=== PATIENT | female | born 1980 | race Caucasian/White ===

== ENCOUNTER 2016-10-13 17:24 | Emergency (ER) | payer MEDICAID ==
[~2016-10-13] VITALS: Ht 170.2 cm; Wt 74.0 kg
[2016-10-13 17:51] VITALS: Ht 170.2 cm; Wt 74.0 kg
[2016-10-13] MEDS ORDERED: ACETAMINOPHEN 325 MG TAB PO STA (19:31)
[2016-10-13] MEDS ORDERED: ONDANSETRON (ODT) 4 MG TAB ODT STA (19:31)
[2016-10-13 20:45] LABS: ADD UMIC YES; URINE BILIRUBIN (Dip) NEGATIVE (NEGATIVE); URINE BLOOD (Dip) TRACE (NEGATIVE); URINE COLOR LT. YELLOW (YELLOW); URINE GLUCOSE (Dip) NEGATIVE (NEGATIVE); URINE KETONES (Dip) NEGATIVE (NEGATIVE); URINE LEUKOCYTE ESTERASE (Dip) 1+ (NEGATIVE); URINE NITRITE (Dip) NEGATIVE (NEGATIVE); URINE TOTAL PROTEIN (Dip) NEGATIVE (NEGATIVE); URINE UROBILINOGEN (Dip) 0.2 E.U./dL (0.1-1.0)
[2016-10-13 20:55] LABS: SQUAMOUS EPITHELIAL CELL,UR FEW; URINE RBCS 0-2 /HPF (0)
[2016-10-13 20:56] LABS: BACTERIA,URINE FEW
[2016-10-13] MEDS ORDERED: NITR-58 PO (21:00)
[2016-10-13] MEDS ORDERED: ACET325T33 PO (21:00)
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
[2016-10-13 22:24] VITALS: BP 119/78; PULSE 83; RESP 16; TEMP 97.9
--- NOTE | 2016-10-14 04:39 | RADRPT ---
PROCEDURE: US Pelvis. CLINICAL INDICATION: Pain. TECHNIQUE: Multiple sonographic images of the pelvis were obtained utilizing a transabdominal and endovaginal technique. The images were reviewed on a PACS workstation. COMPARISON: No. FINDINGS: The uterus is visualized and measures 7.5 cm sagittal by 4.3 cm AP by 5.2 cm transverse.. The endome trial echo complex is normal and measures 0.94 cm. There is no evidence for free fluid. The right ov damien has a normal echotexture and measures 2.3 x 2 by 3 cm . The left ovary has a normal echotexture and measures 3.2 x 2.4 x 2.6 cm. No adnexal masses are noted. There is normal color flow to on Dop pler imaging to both ovaries. IMPRESSION: Unremarkable pelvic ultrasound. RPTAT:AAJJ Physician Serenity Date Time Electronically viewed and signed by Physician Serenity on 10/13/2016 20:49 AUSTEN/
== END 2016-10-13 22:24 | disposition home or self-care (01) ==
LOC: FTE 17:24
DX: S39.91XA Unspecified injury of abdomen, initial encounter (principal); N39.0 Urinary tract infection, site not specified; R10.2 Pelvic and perineal pain; R11.2 Nausea with vomiting, unspecified; V89.2XXA Person injured in unspecified motor-vehicle accident, traffic, initial encounter
CPT/HCPCS: 76856; 81001; Z7502

== ENCOUNTER 2016-11-09 18:23 | Emergency (ER) | payer MEDICAID ==
[~2016-11-09] VITALS: Ht 162.6 cm; Wt 73.0 kg
[~2016-11-09 18:23] MED LIST: ACET325T33 PO; NITR-58 PO
[2016-11-09 18:26] VITALS: Ht 162.6 cm; Wt 73.0 kg
[2016-11-09] MEDS ORDERED: IBUPROFEN 800 MG TAB PO ONE (19:30)
--- NOTE | 2016-11-09 20:09 | RADRPT ---
PROCEDURE: XR Ankle. CLINICAL INDICATION: Trauma, fall, ankle pain TECHNIQUE: AP, oblique and lateral views of the left ankle were performed. COMPARISON: None. FINDINGS: No fracture is identified. The osseous structures are intact. Joint spaces are preserved. The sof t tissues appear unremarkable. IMPRESSION: Unremarkable left ankle series. RPTAT: HESO .Neptali Serna MD, MD Date Time Electronically viewed and signed by .Neptali Serna MD, MD on 11/09/2016 20:09 .O/
--- NOTE | 2016-11-09 20:10 | RADRPT ---
PROCEDURE: XR Foot. CLINICAL INDICATION: Trauma, fall, foot pain TECHNIQUE: AP, lateral and oblique views of the left foot were obtained. COMPARISON: None. FINDINGS: No fracture or dislocation is identified. The osseous structures are intact. There is hallux valgu s. Soft tissues appear unremarkable. IMPRESSION: No fracture/dislocation. Hallux valgus. RPTAT: HESO .Neptali Serna MD, MD Date Time Electronically viewed and signed by .Neptali Serna MD, on 11/09/2016 20:09 .O/
--- NOTE | 2016-11-09 20:15 | ERD ---
ER Documentation Chief Complaint Date/Time DATE: 11/09/16 TIME: 20:14 Chief Complaint left ankle pain/swelling, sp ground level fall HPI This is a 36-year-old female who presents to the emergency room for evaluation of left ankle and foot pain after she tripped while at a gas station. She denies head injury or loss of consciousness or any other pain or trauma. She is able to ambulate but states she is walking with a limp and came to the ER because she noticed some swelling in her left foot. ROS All systems reviewed and are negative except as per history of present illness. Medications Home Meds Active Scripts Acetaminophen* (Tylenol*) 325 Mg Tablet, 2 TAB PO Q6 Y for PAIN AND OR ELEVATED TEMP, #20 TAB Prov:TUSHAR HAY PA-C 10/13/16 Nitrofurantoin Monohyd Macrocr* (Macrobid*) 100 Mg Capsr, 100 MG PO BID for 7 Days, CAP Prov:TUSHAR HAY PA-C 10/13/16 Allergies Allergies: Coded Allergies: Penicillins (Verified Allergy, Unknown, rash, 10/13/16) PMhx/Soc Medical and Surgical Hx: pt denies Medical Hx, pt denies Surgical Hx Hx Alcohol Use: No Hx Substance Use: No Hx Tobacco Use: No Smoking Status: Never smoker Physical Exam Vitals Vital Signs Date Time Temp Pulse Resp B/P Pulse Ox O2 Delivery O2 Flow Rate FiO2 11/09/16 18:26 99.4 90 20 120/82 100 Physical Exam Const: No acute distress Head: Atraumatic Eyes: Normal Conjunctiva ENT: Normal External Ears, Nose and Mouth. Neck: Full range of motion..~ No meningismus. Resp: Clear to auscultation bilaterally Cardio: Regular rate and rhythm, no murmurs Abd: Soft, non tender, non distended. Normal bowel sounds Skin: No petechiae or rashes Back: No midline or flank tenderness Ext: Mild ecchymosis soft tissue swelling noted over the lateral aspect of the left foot Neur: Awake and alert Psych: Normal Mood and Affect Results 24 hrs Current Medications Medications (Trade) Dose Ordered Sig/Delmy Route PRN Reason Start Time Stop Time Status Last Admin Dose Admin Ibuprofen (Motrin) 800 mg ONCE ONCE PO 11/09/16 19:30 11/09/16 19:31 DC 11/09/16 19:20 Procedures/MDM X-ray Foot 3V Interpreted by me: Bones: [No fracture] Joints: [No dislocation] Foreign body: [None] X-ray Ankle 3V Interpreted by me: Bones: [No fracture] Joints: No dislocation This 36-year-old female presents to the ER for evaluation of left foot pain. When I evaluated this patient she did state that she fell at a gas station. She did have slight soft tissue swelling and ecchymosis of the left foot. X- rays were obtained of the left foot and left ankle both of which are normal. The patient is able to ambulate however given her pain with ambulation she will be placed in orthopedic will be discharged home at this time with a prescription for Motrin, and orthopedic follow-up. Departure Diagnosis: Primary Impression: Left ankle strain Additional Impression: Strain of left foot Condition: Stable MIMA MARTIN DO Nov 09, 2016 20:15
[2016-11-09] MEDS ORDERED: IBUP800T25 PO (20:16)
[2016-11-09 20:59] VITALS: BP 125/78; PULSE 77; RESP 18; TEMP 99.4
== END 2016-11-09 21:00 | disposition home or self-care (01) ==
LOC: FTE 18:23
DX: S96.912A Strain of unspecified muscle and tendon at ankle and foot level, left foot, initial encounter (principal); W01.0XXA Fall on same level from slipping, tripping and stumbling without subsequent striking against object, initial encounter; Y92.524 Gas station as the place of occurrence of the external cause
CPT/HCPCS: 73610; 73630; Z7502; Z7610